=== PATIENT | female | born 1995 | race Caucasian/White ===

== ENCOUNTER 2019-11-15 11:54 | Emergency (ER) | payer OTHER ==
[~2019-11-15] VITALS: Ht 177.8 cm; Wt 117.9 kg
[2019-11-15 12:31] LABS: URINE BILIRUBIN NEGATIVE (Negative); URINE BLOOD 3+ (Negative); URINE CLARITY CLEAR; URINE COLOR YELLOW; URINE GLUCOSE-RANDOM TRACE (Negative); URINE KETONES TRACE (Negative); URINE PROTEIN 2+ (Negative); URINE SPECIFIC GRAVITY 1.025 (1.005-1.030)
[2019-11-15 12:32] LABS: ABSOLUTE BASOPHILS 0.1 thou/uL (0.0-0.2); ABSOLUTE EOSINOPHILS 0.1 thou/uL (0.0-0.7); ABSOLUTE LYMPHOCYTES 3.3 thou/uL (0.8-5.3); ABSOLUTE MONOCYTES 0.6 thou/uL (0.0-1.2); ABSOLUTE NEUTROPHILS 6.4 thou/uL (1.6-8.1); EOSINOPHILS 0.8 %; HEMATOCRIT 40.4 % (37.0-47.0); HEMOGLOBIN 14.4 gm/dL (12.0-15.0); LYMPHOCYTES 31.5 %; MCH 32.2 pg (26.0-34.0); MCHC 35.6 g/dL (28.0-37.0); MCV 90.3 fL (80.0-100.0); MONOCYTES 5.3 %; NUCLEATED RBCS 0 /100WBC; PLATELET COUNT* 269 thou/uL (150-400); POLYS 61.4 %; RBC 4.48 mil/uL (4.20-5.00); RDW-CV 12.7 % (10.5-14.5); WBC 10.4 thou/uL (4.0-11.0)
[2019-11-15 12:34] LABS: URINE LEUKOCYTES-REFLEX 2+ (Negative); URINE NITRITE-REFLEX POSITIVE (Negative)
[2019-11-15 12:36] LABS: SQUAMOUS 0-3 Few /LPF (0-3); URINE RBC >20 Many /HPF (0-2); URINE WBC-REFLEX 6-15 Few /HPF (0-5)
[2019-11-15 12:37] LABS: BACTERIA-REFLEX 1-9 Few /HPF (None Seen); CASTS None Seen /LPF (None Seen); CRYSTALS None Seen /LPF (None Seen); MUCUS None Seen strn/LPF (None Seen)
[2019-11-15 12:44] LABS: CALCIUM 8.9 mg/dL (8.5-10.1); CREATININE 0.8 mg/dL (0.6-1.3); POTASSIUM 3.7 mmol/L (3.5-5.1)
[2019-11-15 12:48] LABS: ALBUMIN 3.6 g/dL (3.4-5.0); TOTAL BILIRUBIN 0.3 mg/dL (<0.1-1.0); TOTAL PROTEIN 7.6 g/dL (6.4-8.2)
[2019-11-15] MEDS ORDERED: BACTRIM DS TAB1 EACH PO (14:12)
[2019-11-15] MEDS ORDERED: ONDANSETRON ODT4 MG PO (14:25)
[2019-11-15] MEDS ORDERED: TYLENOL WITH CO1 TA1 PO (14:25)
[2019-11-15 14:31] VITALS: BP 146/85
[2019-11-20] MEDS ORDERED: NORCO 5-325 TA1 EAC2 PO (11:11)
== END 2019-11-15 14:32 | disposition home or self-care (01) ==
LOC: M.ERS 11:54
PROVIDERS: Physician Assistant
DX: N39.0 Urinary tract infection, site not specified (principal); R93.6 Abnormal findings on diagnostic imaging of limbs; Z90.49 Acquired absence of other specified parts of digestive tract

== ENCOUNTER 2020-06-23 10:36 | Emergency (ER) | payer OTHER ==
[~2020-06-23] VITALS: Ht 175.3 cm; Wt 108.9 kg
[~2020-06-23 10:36] MED LIST: BACTRIM DS TAB1 EACH PO; NORCO 5-325 TA1 EAC2 PO; ONDANSETRON ODT4 MG PO; TYLENOL WITH CO1 TA1 PO
[2020-06-23] MEDS ORDERED: PROMS25 WY RECTAL (10:48)
[2020-06-23 11:00] LABS: URINE BLOOD TRACE (Negative); URINE CLARITY CLEAR; URINE COLOR YELLOW; URINE GLUCOSE-RANDOM NEGATIVE (Negative); URINE KETONES NEGATIVE (Negative); URINE LEUKOCYTES-REFLEX NEGATIVE (Negative); URINE NITRITE-REFLEX NEGATIVE (Negative); URINE PROTEIN NEGATIVE (Negative); URINE SPECIFIC GRAVITY >= 1.030 (1.005-1.030)
[2020-06-23 11:02] LABS: ICTOTEST (BILI CONFIRMATORY) Negative (Negative); URINE BILIRUBIN 2+ (Negative)
[2020-06-23 11:18] LABS: ABSOLUTE BASOPHILS 0.1 thou/uL (0.0-0.2); ABSOLUTE EOSINOPHILS 0.1 thou/uL (0.0-0.7); ABSOLUTE LYMPHOCYTES 2.8 thou/uL (0.8-5.3); ABSOLUTE MONOCYTES 0.4 thou/uL (0.0-1.2); ABSOLUTE NEUTROPHILS 5.8 thou/uL (1.6-8.1); BASOPHILS 1.2 %; EOSINOPHILS 1.2 %; HEMATOCRIT 42.2 % (37.0-47.0); HEMOGLOBIN 14.3 gm/dL (12.0-15.0); LYMPHOCYTES 30.2 %; MCH 31.1 pg (26.0-34.0); MCHC 33.9 g/dL (28.0-37.0); MCV 91.8 fL (80.0-100.0); MONOCYTES 4.9 %; MPV 9.1 fl. (7.2-11.1); NUCLEATED RBCS 0 /100WBC; PLATELET COUNT* 294 thou/uL (150-400); POLYS 62.5 %; RBC 4.59 mil/uL (4.20-5.00); RDW-CV 13.1 % (10.5-14.5); WBC 9.2 thou/uL (4.0-11.0)
[2020-06-23 11:25] LABS: AMP/METHAMP Negative (Negative); BARBITURATES Negative (Negative); BENZODIAZEPINES Negative (Negative); COCAINE Negative (Negative); METHADONE Negative (Negative); OPIATES POSITIVE (Negative); PCP Negative (Negative); THC POSITIVE (Negative)
[2020-06-23 11:26] LABS: CALCIUM 8.7 mg/dL (8.5-10.1); POTASSIUM 3.7 mmol/L (3.5-5.1)
[2020-06-23 11:30] LABS: ALBUMIN 3.6 g/dL (3.4-5.0); TOTAL BILIRUBIN 0.2 mg/dL (<0.1-1.0); TOTAL PROTEIN 7.2 g/dL (6.4-8.2)
[2020-06-23] MEDS ORDERED: ONDANSETRON ODT4 MG PO (12:37)
[2020-06-23 12:44] VITALS: BP 111/63
== END 2020-06-23 12:44 | disposition home or self-care (01) ==
LOC: M.ERS 10:36
PROVIDERS: Physician Assistant
DX: R11.2 Nausea with vomiting, unspecified (principal); Z90.49 Acquired absence of other specified parts of digestive tract; Z79.899 Other long term (current) drug therapy